=== PATIENT | female | born 1975 | race Caucasian/White ===

== ENCOUNTER 2016-11-08 13:59 | Inpatient (IN) | payer MEDICAID ==
[~2016-11-08] VITALS: Ht 160 cm; Wt 131.5 kg
--- NOTE | 2016-11-08 14:01 | NUR ---
TATI FROM HOME GLF-- RIGHT LEG PAIN. APPLIED PRESSURE TO RIGHT LEG LAC. AWAITING MD ORDER.
--- NOTE | 2016-11-08 14:30 | NUR ---
DR ROGERS AT BEDSIDE FOR EVAL
[2016-11-08] MEDS ORDERED: HYDROCODONE/APAP 10/325MG 1 EA TABLET ONE (14:38)
--- NOTE | 2016-11-08 14:45 | NUR ---
WILNER #20 IV ACCESS. BLOOD SAMPLE COLLECTED SENT TO LAB
--- NOTE | 2016-11-08 14:53 | NUR ---
CALLED NURSING SUP. FOR MS BED
[2016-11-08 14:57] LABS: BASOPHILS # (AUTO) 0.1 /CMM (0.0-0.2); BASOPHILS % (AUTO) 1.4 % (0.0-2.0); EOSINOPHILS # (AUTO) 0.1 /CMM (0.0-0.7); EOSINOPHILS % (AUTO) 1.3 % (0.0-6.0); HEMATOCRIT 41 % (33-45); HEMOGLOBIN 13.7 g/dL (11.5-14.8); LYMPHOCYTES # (AUTO) 1.6 /CMM (0.8-4.8); LYMPHOCYTES % (AUTO) 16.4 % (20.0-44.0); MEAN CORPUSCULAR HEMOGLOBIN 30 PG (26.0-33.0); MEAN CORPUSCULAR HGB CONC 33 g/dl (31.0-36.0); MEAN CORPUSCULAR VOLUME 91 fL (82-100); MONOCYTES # (AUTO) 0.6 /CMM (0.1-1.30); MONOCYTES % (AUTO) 6.1 % (2.0-12.0); NEUTROPHILS # (AUTO) 7.4 /CMM (1.8-8.9); NEUTROPHILS % (AUTO) 74.8 % (43.0-81.0); PLATELET COUNT (AUTO) 365 /CMM (150-450); RDW COEFFICIENT OF VARIATION 12.1 (11.5-15.0); RED BLOOD CELL COUNT(AUTO) 4.55 MIL/uL (4.0-5.2); WHITE BLOOD COUNT (AUTO) 9.8 K/uL (4.3-11.0)
[2016-11-08] MEDS ORDERED: HYDROCODONE/APAP 10/325MG 1 EA TABLET PO ONE (15:00)
[2016-11-08 15:11] LABS: INR 0.89 (0.87-1.13); PROTHROMBIN TIME 9.2 SECS (9.5-12.7)
[2016-11-08 15:18] LABS: CALCIUM, SERUM 8.7 mg/dL (8.5-10.1); CREATININE 0.7 mg/dL (0.6-1.3)
[2016-11-08] MEDS ORDERED: HYDROMORPHONE 1 MG/1 ML DISP.SYRIN ONE (15:21)
[2016-11-08 15:23] LABS: ALBUMIN 3.4 g/dL (3.4-5.0); BILIRUBIN,DIRECT 0.1 mg/dL (0.0-0.2); BILIRUBIN,TOTAL 0.3 mg/dL (0.2-1.0); TOTAL PROTEIN, SERUM 7.9 g/dL (6.4-8.2)
--- NOTE | 2016-11-08 15:24 | NUR ---
PT GETTING MORE MEDS. & GETTING CLEANED UP, ER WILL CALL WHEN READY.
[2016-11-08] MEDS ORDERED: HYDROMORPHONE 1 MG/1 ML DISP.SYRIN IV ONE (15:30)
--- NOTE | 2016-11-08 15:35 | NUR ---
PT TAKEN TO XRAY [facility]IA [facility]
--- NOTE | 2016-11-08 15:45 | NUR ---
MS 201
--- NOTE | 2016-11-08 15:53 | NUR ---
gave report to hilda SAENZ admitting md dr phil jimenes. room 201 . admitting dx rt tib-fib fx.
--- NOTE | 2016-11-08 15:59 | NUR ---
ARJUN CURRY, MARINE NOEL FLOOR POLISHER
[2016-11-08] MEDS ORDERED: CEFAZOLIN 2 GM in IV D5W 50 ML IV ONE (16:30)
[2016-11-08] MEDS ORDERED: LEVOFLOXACIN 750 MG /D5W 150ML 0 ML IV ONE (16:30)
[2016-11-08] MEDS ORDERED: LEVOFLOXACIN 750 MG /D5W 150ML PIGGYBACK IV ONE (16:30)
--- NOTE | 2016-11-08 16:32 | NUR ---
SUGAR PAGED, GONZALO WASHINGTON ONLINE ADVERTISING ANALYST
[2016-11-08] MEDS ORDERED: MORPHINE SULFATE INJ 4 MG/ML DISP.SYRIN IV STA (16:48)
[2016-11-08] MEDS ORDERED: DOXYCYCLINE 100 MG in IV D5W 100 ML IV STA (16:55)
[2016-11-08] MEDS ORDERED: MORPHINE SULFATE INJ 10 MG/ML DISP.SYRIN ONE (17:00)
--- NOTE | 2016-11-08 17:00 | NUR ---
PT ALLERGIC LEVAQUIN MEDS DC'D CHANGE TO DOXYCYCLINE
--- NOTE | 2016-11-08 18:10 | NUR ---
CAMPAIGN ASSOCIATE NOTES RECEIVED PATIENT FROM E.D. DEPARTMENT [facility]IA [facility] TRANSFERRED HERSELF FROM [facility] TO THE BED, ALERT AND ORIENTED, IN STABLE CONDITION, DENIES PAIN AT THIS TIME, ALL NEEDS ATTENDED, FAMILY AT BEDSIDE, SAFETY MEASURES IN PLACED, CALL LIGHT WITHIN REACH, WILL CONTINUE TO MONITOR.
[2016-11-08 18:15] VITALS: BP 124/76
--- NOTE | 2016-11-08 18:30 | NUR ---
RN MS NOTES RECEIVED ORDERS FROM MARINE JIANG, REGULAR DIET NOW AND NPO AFTER 9PM, AND PATIENT WILL HAVE ORIF OF RIGHT TIB/FIB TOMORROW AT 0530AM. ORDER NOTED AND CARRIED OUT. PATIENT PROVIDED DINNER AND TOLERATED WELL, VITAL SIGNS STABLE.
[2016-11-08] MEDS ORDERED: LORAZEPAM INJ 2 MG/ML VIAL IV PRN (19:00)
[2016-11-08] MEDS ORDERED: ACETAMINOPHEN 325 MG TABLET PO PRN (19:00)
[2016-11-08] MEDS ORDERED: Z GUARD REMEDY 2 OZ OINT TP PRN (19:00)
--- NOTE | 2016-11-08 19:15 | NUR ---
RN MS NOTES RECEIVED ORDERS FROM DR. WASHINGTON, ORDERS NOTED AND CARRIED OUT. PATIENT ALERT AND ORIENTED, ALL NEEDS ATTENDED AND MET, SAFETY MEASURES IN PLACED, CALL LIGHT WITHIN REACH, WILL ENDORSE TO INSTALLATION SUPERINTENDENT FOR ESME.
--- NOTE | 2016-11-08 19:18 | NUR ---
MS RN NOTES RECEIVED PT IN BED. A/O X 4 . VERBALLY RESPONSIVE. AT BEDSIDE. PT WITH NO DISTRESS, ABLE TO EAT DINNER. NO SOB NOTE AT THIS TIME. IV SITE ON LEFT HAND INTACT AND PATENT, NO S/S OF INFILTRATION NOTED. RIGHT LOWER LEG COVERED WITH DRESSING AT THIS TIME. NO S/S OF BLEEDING NOTED. NO C/O PAIN OR DISCOMFORT AT THIS TIME. ALL NEEDS ATTENDED AND MET. KEPT COMFORTABLE. SAFETY PRECAUTIONS OBSERVED. CALL LIGHT WITHIN REACH. WILL CONT TO MONITOR.
[2016-11-08] MEDS: MORPHINE SULFATE INJ 2 MG/ML DISP.SYRIN IV PRN (19:38)
[2016-11-08] MEDS: IV NS 0.9% 1,000 ML IV PRN (19:48)
[2016-11-08 20:00] VITALS: BP 123/79
[2016-11-08] MEDS: CEFAZOLIN 1 GM in IV D5W 50 ML IV SCH (21:00)
--- NOTE | 2016-11-08 22:07 | NUR ---
PT REFUSING SURGERY AT THIS TIME, RISKS AND BENEFITS EXPLAINED, PT VERBALIZED THAT SHE WILL THINK ABOUT IT. ALLOWS PT TOO VERBALIZE FEARS AND ANXIETY REGARDING THE SURGERY . PT STILL UNDECIDED AND WILL THINK ABOUT IT. PT STARTED EATING SNACKS THAT THE BOUGHT FROM THE VENDING MACHINE, AND STARTED DRINKING GATORADE. REMINDED PT THAT SHE'S ALREADY ON NPO, PT IS A/O X4, PT VERBALIZED THAT SHE KNOWS THAT SHE SHOULD BE ON NPO AFTER 9PM BUT ACCDG TO HER SHE DOESN'T WANT TO SURGERY TO BE DONE ANYWAY.
--- NOTE | 2016-11-08 22:30 | NUR ---
PT PULLED OUT HER IV LINE, NO BLEEDING NOTED AT THIS TIME. PT VERBALIZED THAT I DON'T WANT ANY MEDICATIONS OR IV FLUIDS AT THIS TIME. EXPLAINED TO THE PT THE RISK AND BENEFITS OF THE IV LINE, ABLE TO CONVINCE PT TO INSERT IV ON HER AGAIN, INSERTED IV ON RIGHT HAND X 1 ATTEMPT WITH GOOD VENOUS RETURN, DANY HERNANDEZ AT BEDSIDE.
--- NOTE | 2016-11-08 23:30 | NUR ---
PT KEPT ON EATING AND DRINKING AT THIS TIME, DESPITE MULTIPLE REMINDERS THAT SHE IS ON NPO FOR SURGERY . PT VERBALIZED THAT SHE'S NOT HAVING THE SURGERY. PLACED A CALL TO RN COOLER TENDER REMEIDOS, AND INFORMED HER RE: PT'S DECISION, PLACED A CALL TO [facility]O , RO[employer] AND P[employer]ING [employer]S SWEEPER OPERATOR AND SPOKE WITH FREDI. SHE'LL PAGE MARINE MAGUI AND HE'LL GIVE ME A CALL BACK. AWAITING FOR CALL BACK.
--- NOTE | 2016-11-08 23:52 | NUR ---
RECEIVED A CALL FROM MARINE KILGORE , EXPLAINED TO HIM THAT THE PT IS REFUSING THE SCHEDULED SURGERY TOMORROW, MARINE SPOKE WITH THE PT IN THE PHONE, PER MARINE PT IS STILL UNDECIDED AT THIS TIME, BUT MARINE IS AWARE THAT THE PT SHOULD BE ON NPO AFTER 9PM BUT STILL EATING OF THIS MOMENT. PER MARINE TO GIVE HIM A CALL BACK ONCE THE PT MADE HER DECISION ALREADY. ALSO MARINE MADE AWARE THAT THE PT REFUSED THE IV ATB AND THAT SHE WANTED TO RE CHANGE THE DRESSING OF THE AFFECTED LEG, BUT UNABLE TO CHANGE IT D/T, EPISODES OF BLEEDING IN THE ER THE PT VERBALIZED AND ALSO SPLINT WAS PLACED WITH THE DRESSING.
--- NOTE | 2016-11-09 00:25 | NUR ---
PT DOESN'T WANT THE SURGERY TO BE DONE TOMORROW, RISK AND BENEFITS EXPLAINED. PT STILL REFUSED X 3, WITNESSED BY DANY REYES. PLACED A CALL TO COURY MAGUI AND INFORMED HIM REGARDING PT'S DECISION.
--- NOTE | 2016-11-09 02:00 | NUR ---
PT REFUSED IVF AT THIS TIME, RISK AND BENEFITS EXPLAINED, PT STILL REFUSED.
[2016-11-09] MEDS: CEFAZOLIN 1 GM in IV D5W 50 ML IV SCH (05:00)
--- NOTE | 2016-11-09 06:00 | NUR ---
PT REFUSED BLOOD DRAW , RISK AND BENEFITS EXPLAINED. PT STILL REFUSED.
[2016-11-09] MEDS ORDERED: MORPHINE SULFATE INJ 2 MG/ML DISP.SYRIN ONE (06:59)
[2016-11-09] MEDS: ONDANSETRON HCL/PF 4 MG/2 ML VIAL IVP PRN (07:02)
[2016-11-09] MEDS: MORPHINE SULFATE INJ 2 MG/ML DISP.SYRIN IV PRN (07:08)
--- NOTE | 2016-11-09 07:20 | NUR ---
MS RN NOTES RECEIVED PT IN BED. A/O X 4 . VERBALLY RESPONSIVE. AT BEDSIDE. PT WITH NO DISTRESS. NO SOB NOTE AT THIS TIME. IV SITE ON RIGHT HAND INTACT AND PATENT, NO S/S OF INFILTRATION NOTED. RIGHT LOWER LEG COVERED WITH DRESSING AT THIS TIME. NO S/S OF BLEEDING NOTED. NO C/O PAIN OR DISCOMFORT AT THIS TIME. ALL NEEDS ATTENDED AND MET. KEPT COMFORTABLE. SAFETY PRECAUTIONS OBSERVED. ADVISED PT NOT TO APPLY WEIGHT ON THE AFFECTED FOOT, BUT PT CONSTANTLY PUTTING HER RIGHT FOOT DOWN. PT IS A/O X 4. CALL LIGHT WITHIN REACH. WILL ENDORSE TO NEXT SHIFT FOR ESME.
[2016-11-09] MEDS: PANTOPRAZOLE 40 MG TABLET.DR PO SCH (07:30)
[2016-11-09 08:00] VITALS: BP 160/91
--- NOTE | 2016-11-09 08:11 | NUR ---
RN MS NOTES PATIENT IN BED ALERT AND ORIENTED, DENIES PAIN AT THIS TIME, REFUSES MEDICATIONS AND STILL REFUSING SURGERY TO RIGHT FIB/TIB, RECEIVED AN ORDER FROM MARINE JIANG, PATIENT CAN EAT BREAKFAST BUT NPO AFFTER 8:30AM, PATIENT MADE AWARE. PATIENT'S BLOOD PRESSURE 160/90 HEART RATE 119, PER PATIENT SHE FEELS ANXIOUS DUE TO SURGERY AND HER CONDITION, OFFERED ATIVAN BUT PATIENT REFUSED. EXPLAINED RISKS AND BENEFITS X3, STILL REFUSED. WILL INFORM MD REGARDING VITALS.
[2016-11-09] MEDS ORDERED: METOPROLOL TARTRATE INJ 5 MG/5 ML AMPUL ONE (09:51)
--- NOTE | 2016-11-09 11:00 | NUR ---
RN MS NOTES DR. GONZALO WASHINGTON CAME AND EXAMINED THE PATIENT, DISCUSSED THE RISKS WITH NO SURGICAL INTERVENTION, DISCUSSED TREATMENT AND RECOVERY PERIOD POST OP, PATIENT IS STILL UNSURE ABOUT SURGERY, FAMILY AT BEDSIDE TRYING TO CONVINCE PATIENT TO DO THE SURGERY, BUT PATIENT IS ANXIOUS AND AFRAID OF STAYING IN THE HOSPITAL FOR A FEW DAYS. PATIENT STILL ENCOURAGED TO BE NPO FOR POSSIBLE SURGERY TODAY, IN CASE SHE AGREES TO IT.
--- NOTE | 2016-11-09 11:19 | NUR ---
torpedo worker met with patient at bedside. Patient's friend was also at bedside. Patient was oriented x4. Patient was calm and cooperative. Patient was guarded stating, "torpedo worker, why do I need a social service manager, I don't have any children." Per patient, she lives at home with her mother [id number] [facility] [id number] ([phone]). Patient would like to return home upon discharge. Patient's contact is her father Pretty Muñoz ([phone]). Per patient, she has anxiety and is worried that she is going to get in an infection. Patient and patient's friend were unhappy with the staff. Per patient, she drinks alcohol every other day but denied using drugs. torpedo worker asked patient if she was interested in going to a treatment center. Patient refused a treatment center. torpedo worker left patient substance abuse resources (substance abuse treatment centers, AA meeting resources, mental health resources). Patient denied visual and auditory hallucinations. Patient denied suicidal and homicidal ideations. torpedo worker informed patient that she is available if needed.
--- NOTE | 2016-11-09 12:30 | NUR ---
RN MS NOTES MARINE JIANG CALLED AND ASKED IF THE PATIENT IS WILLING TO GO TO SURGERY, INFORMED MAGUI PATIENT IS STILL UNSURE, SHE DOES NOT WANT TO BE "PUT TO SLEEP" DURING THE SURGERY, MARINE SAID HE WILL COME TALK TO HER LATER, BUT FOR NOW KEEP HER NPO. INFORMED MARINE ABOUT THE ELEVATED BLOOD PRESSURE.
--- NOTE | 2016-11-09 12:40 | NUR ---
RN MS OH KILGORE CALLED AND STATED SURGERY IS SCHEDULED AT 4PM, IF PATIENT AGREES. PATIENT WILL BE PREPARED FOR SURGERY. CURRENTLY PATIENT IS AGREEING TO THE SURGERY WITH THE CONDITION THAT SHE WILL NOT BE PUT TO SLEEP, OR STAFF MADE AWARE.
[2016-11-09] MEDS: VALSARTAN 40 MG TABLET PO SCH (12:53)
[2016-11-09 13:18] LABS: BASOPHILS # (AUTO) 0.1 /CMM (0.0-0.2); BASOPHILS % (AUTO) 0.8 % (0.0-2.0); EOSINOPHILS % (AUTO) 0.2 % (0.0-6.0); HEMATOCRIT 39 % (33-45); HEMOGLOBIN 13.2 g/dL (11.5-14.8); LYMPHOCYTES # (AUTO) 1.3 /CMM (0.8-4.8); MEAN CORPUSCULAR HEMOGLOBIN 31 PG (26.0-33.0); MEAN CORPUSCULAR HGB CONC 34 g/dl (31.0-36.0); MEAN CORPUSCULAR VOLUME 90 fL (82-100); MONOCYTES # (AUTO) 0.7 /CMM (0.1-1.30); MONOCYTES % (AUTO) 6.2 % (2.0-12.0); NEUTROPHILS # (AUTO) 8.9 /CMM (1.8-8.9); NEUTROPHILS % (AUTO) 80.8 % (43.0-81.0); PLATELET COUNT (AUTO) 314 /CMM (150-450); RDW COEFFICIENT OF VARIATION 12.9 (11.5-15.0); RED BLOOD CELL COUNT(AUTO) 4.32 MIL/uL (4.0-5.2)
[2016-11-09 13:26] LABS: ALBUMIN 3.4 g/dL (3.4-5.0); CALCIUM, SERUM 8.7 mg/dL (8.5-10.1); CREATININE 0.8 mg/dL (0.6-1.3); MAGNESIUM 1.9 mg/dL (1.8-2.4); PHOSPHORUS 3.8 mg/dL (2.5-4.9); POTASSIUM 3.8 mmol/L (3.5-5.1); TOTAL PROTEIN, SERUM 7.8 g/dL (6.4-8.2)
[2016-11-09 13:34] LABS: THYROID STIMULATING HORMONE 3.317 uIU/mL (0.358-3.74)
[2016-11-09] MEDS: DOXYCYCLINE 100 MG in IV D5W 100 ML IV SCH (14:38)
[2016-11-09 16:00] VITALS: BP 146/86
[2016-11-09] MEDS ORDERED: LORAZEPAM 1 MG TABLET PO PRN (16:00)
[2016-11-09] MEDS ORDERED: BACITRACIN 50000 UNITS/VIAL ONE (16:09)
[2016-11-09] MEDS ORDERED: MORPHINE SULFATE INJ 10 MG/ML DISP.SYRIN ONE (18:21)
[2016-11-09] MEDS ORDERED: CLINDAMYCIN 900 MG/6 ML VIAL ONE (18:59)
[2016-11-09] MEDS ORDERED: ROCURONIUM BROMIDE 50 MG/5 ML ONE (19:34)
[2016-11-09] MEDS ORDERED: HYDROGEN PEROXIDE 480 ML BOTTLE ONE (19:59)
[2016-11-09] MEDS ORDERED: BUPIVACAINE 0.5 % PF 150 MG/30 ML VIAL ONE (20:45)
[2016-11-09 21:00] VITALS: BP 120/70
[2016-11-09] MEDS ORDERED: MORPHINE SULFATE INJ 4 MG/ML DISP.SYRIN IV PRN (22:00)
[2016-11-09] MEDS ORDERED: oxyCODONE/APAP (5/325 MG) 1 UDTAB TABLET PO PRN ×2 (22:30)
[2016-11-09 22:55] VITALS: BP 120/70
--- NOTE | 2016-11-09 23:40 | NUR ---
RN NOTES RECEIVED REPORT FROM JHONNY SAENZ FOR CONTINUITY OF CARE
[2016-11-10] MEDS: DOXYCYCLINE 100 MG in IV D5W 100 ML IV SCH ×2 (00:39→12:36)
[2016-11-10] MEDS: CLINDAMYCIN 900 MG in IV D5W 50 ML IV SCH ×3 (03:00→19:00)
[2016-11-10] MEDS: IV NS 0.9% 1,000 ML IV PRN (05:54)
--- NOTE | 2016-11-10 06:17 | NUR ---
RN NOTES PATIENT AWAKE, AO X 4, ABLE TO MAKE NEEDS KNOWN. NO ACUTE DISTRESS NOTED. DENIES ANY PAIN AT THIS TIME. RIGHT LEG SURGICAL INCISION DRESSING INTACT. IV SITE PATENT, INTACT; IVF INFUSING ORDERED. DUE MEDS GIVEN WITH NO ASE NOTED. NEEDS ATTENDED. SAFETY PRECAUTIONS AND COMFORT MEASURES IN PLACE. WILL GIVE REPORT TO DAY SHIFT FOR CONTINUITY OF CARE.
--- NOTE | 2016-11-10 07:12 | NUR ---
MS RN OPENING NOTES RECEIVED PT IN BED AWAKE IN NO ACUTE SIGNS OF DISTRESS. AT BEDSIDE. A/O X 4, NO C/O PAIN OR DISCOMFORTS AT THIS TIME. DRESSING ON RIGHT LOWER LEG INTACT, CLEAN AND DRY. IV SITE ON LEFT HAND INTACT AND PATENT, IVF OF NS AT 75ML/HR INFUSING WELL, NO S/S OF INFILTRATION NOTED. CALL LIGHT WITHIN REACH. SAFETY PRECAUTIONS MAINTAINED. WILL CONTINUE TO MONITOR PT ACCORDINGLY..
[2016-11-10] MEDS: PANTOPRAZOLE 40 MG TABLET.DR PO SCH (07:30)
[2016-11-10 07:37] LABS: BASOPHILS % (AUTO) 0.1 % (0.0-2.0); HEMATOCRIT 37 % (33-45); HEMOGLOBIN 12.4 g/dL (11.5-14.8); LYMPHOCYTES # (AUTO) 0.5 /CMM (0.8-4.8); LYMPHOCYTES % (AUTO) 3.5 % (20.0-44.0); MEAN CORPUSCULAR HEMOGLOBIN 31 PG (26.0-33.0); MEAN CORPUSCULAR HGB CONC 34 g/dl (31.0-36.0); MEAN CORPUSCULAR VOLUME 91 fL (82-100); MONOCYTES # (AUTO) 0.4 /CMM (0.1-1.30); MONOCYTES % (AUTO) 3.3 % (2.0-12.0); NEUTROPHILS # (AUTO) 12.4 /CMM (1.8-8.9); NEUTROPHILS % (AUTO) 93.1 % (43.0-81.0); PLATELET COUNT (AUTO) 298 /CMM (150-450); RDW COEFFICIENT OF VARIATION 13.1 (11.5-15.0); RED BLOOD CELL COUNT(AUTO) 4.07 MIL/uL (4.0-5.2); WHITE BLOOD COUNT (AUTO) 13.3 K/uL (4.3-11.0)
[2016-11-10 08:00] VITALS: BP 133/73
[2016-11-10 08:11] LABS: CALCIUM, SERUM 8.8 mg/dL (8.5-10.1); CREATININE 0.8 mg/dL (0.6-1.3); MAGNESIUM 1.9 mg/dL (1.8-2.4); PHOSPHORUS 2.4 mg/dL (2.5-4.9)
[2016-11-10] MEDS: VALSARTAN 40 MG TABLET PO SCH (08:38)
--- NOTE | 2016-11-10 08:39 | NUR ---
RN NOTES PATIENT REFUSED ALL P.O. MEDS THIS MORNING. STATED THAT SHE'S FINE NOT TAKING THEM SHE'S STABLE NOW AND HER BP IS NORMAL 133/73MMHG. EXPLAINED THE BENEFITS OF TAKING ALL THE MEDS BUT STILL REFUSED. WILL CONTINUE TO MONITOR.
[2016-11-10] MEDS ORDERED: SERTRALINE HCL 25 MG TABLET PO SCH (09:00)
[2016-11-10] MEDS ORDERED: HYDROCODONE/APAP 5/325MG 1 EACH TABLET PO PRN (11:30)
[2016-11-10] MEDS ORDERED: HYDROCODONE/APAP 5/325MG 1 EACH TABLET PO ONE (11:30)
[2016-11-10] MEDS ORDERED: RIVA10TA PO (12:09)
[2016-11-10] MEDS ORDERED: DOXY100C2 PO (12:09)
[2016-11-10] MEDS ORDERED: OXYC-128 PO (12:09)
--- NOTE | 2016-11-10 13:19 | NUR ---
RN NOTES PATIENT SEEN AND EVALUATED BY DR. WASHINGTON WITH ORDER FOR DISCHARGE HOME TODAY. S/P POST OPEN ORIF OF RIGHT TIBULA AND FIBULA BY DR SCHWARTZ ON 11/09/2016. PT REFUSED PHOTOS OF WOUND TO BE TAKEN. WILL CONTINUE TO MONITOR.
[2016-11-10 16:00] VITALS: BP 122/83
[2016-11-10] MEDS ORDERED: K PHOS NEUTRAL 250 MG TABLET PO ONE (16:00)
[2016-11-10] MEDS ORDERED: RIVAROXABAN 10 MG TABLET PO SCH (17:00)
[2016-11-10] MEDS: ONDANSETRON HCL/PF 4 MG/2 ML VIAL IVP PRN (18:52)
--- NOTE | 2016-11-10 19:09 | NUR ---
RN CLOSING NOTES PATIENT AWAKE AND RESTING IN BED. ALERT AND ORIENTED X 4. ALL NEEDS AND CARE ATTENDED WELL ALL DUE MEDS GIVEN ORDERED. WILL ENDORSED TO PLANT PHYSIOLOGY TEACHER THAT PT WILL BE DISCHARGED HOME TONIGHT AT 20OOH. TRANSPORTATION ARRANGED BY METHODS ANALYST.
[2016-11-10 20:05] VITALS: BP 143/87
--- NOTE | 2016-11-10 20:07 | NUR ---
PT COMPLAIN OF PAIN ON HER LOWER LEG IN A SCALE OF 9/10. PERCOCET 5/325MG PO GIVEN ORDERED. WILL CONTINUE TO REASSESS AND MONITOR.
[2016-11-10 20:55] VITALS: BP 143/87
--- NOTE | 2016-11-10 21:26 | NUR ---
MS RN OPENING NOTES RECEIVED PT IN BED AWAKE. A/O X 4. NO SOB. RESPIRATION EVEN AND UNLABORED. DRESSING ON RIGHT LOWER LEG INTACT, CLEAN AND DRY. PROVIDE COMFORT MEASURES. ALL NEEDS ATTENDED AND ANTICIPATED. CALL LIGHT WITHIN REACH. SAFETY PRECAUTIONS MAINTAINED. WILL CONTINUE TO MONITOR FOR SAFETY.
--- NOTE | 2016-11-10 22:14 | NUR ---
PT WAS DISCHARGE WITH EMT VIA [facility] GOING TO HER HOME. BELONGINGS CHECKED AND GIVE IT TO THE PT. NO SOB. RESPIRATION EVEN AND UNLABORED. NO COMPLAIN OF PAIN AT THIS TIME. V/S STABLE. NO ACUTE DISTRESS NOTED. PT REFUSED PHOTOS OF WOUND TO BE TAKEN. STABLE UPON DISCHARGE.
== END 2016-11-10 22:05 | disposition home or self-care (01) | DRG 313 ==
LOC: ER 14:03 → MEDSG2 16:32 → MED 11-09 16:13
PROVIDERS: ADMIT Nurse Practitioner Acute Care; ATTEND Nurse Practitioner Acute Care
PROC: 0QSJ04Z Reposition Right Fibula with Internal Fixation Device, Open Approach (ICD-10-PCS; principal; 2016-11-09 06:54)
PROC: 0QSG04Z Reposition Right Tibia with Internal Fixation Device, Open Approach (ICD-10-PCS; principal; 2016-11-09 06:54)
DX: S82.251A Displaced comminuted fracture of shaft of right tibia, initial encounter for closed fracture (principal); E43 Unspecified severe protein-calorie malnutrition; S82.491A Other fracture of shaft of right fibula, initial encounter for closed fracture; Z68.43 Body mass index [BMI] 50.0-59.9, adult; E66.01 Morbid (severe) obesity due to excess calories; F10.20 Alcohol dependence, uncomplicated; Y90.8 Blood alcohol level of 240 mg/100 ml or more; F41.1 Generalized anxiety disorder; F41.0 Panic disorder [episodic paroxysmal anxiety]; Y93.9 Activity, unspecified; Y92.009 Unspecified place in unspecified non-institutional (private) residence as the place of occurrence of the external cause; W18.30XA Fall on same level, unspecified, initial encounter; F17.210 Nicotine dependence, cigarettes, uncomplicated
CPT/HCPCS: 36415; 71010-TC; 73560-TC; 73590-TC; 73600-TC; 80048-TC; 80053-TC; 80061-TC; 80076-TC; 83735-TC; 84100-TC; 84443-TC; 85025-TC; 85730-TC; 86850-TC; 87081-TC; 97001-TC; A4606; A6402; G0480; J0690; J1170; J1956; J2270; J2405; J3490; J7030; J7060; Z7610

== ENCOUNTER 2016-11-20 19:33 | Emergency (ER) | payer MEDICAID ==
[~2016-11-20] VITALS: Ht 172.7 cm; Wt 179.6 kg
[~2016-11-20 19:33] MED LIST: DOXY100C2 PO; OXYC-128 PO; RIVA10TA PO
--- NOTE | 2016-11-20 19:45 | NUR ---
TO BED 6 A 41 YO FEMALE BB RA 889 HERE FOR "RT LEG INCREASING PAIN AND SUTURE REMOVAL." S/P TIBIA/FIBULA ORIF 10 DAYS AGO. UPON ARRIVAL TO ER, PATIENT IS AAOX4, AFEBRILE, VSS. NAD NOTED. COMFORT MEASURES RENDERED. NOTED WITH DRESSINGS ON THE R LOWER EXTREMITY, NO ADVERSE CONDITION NOTED. AWAITING FOR ER MD RUVALCABA.
--- NOTE | 2016-11-20 20:00 | NUR ---
Tiago Davenport at bedside.
[2016-11-20] MEDS ORDERED: MORPHINE SULFATE INJ 4 MG/ML DISP.SYRIN ONE (20:37)
--- NOTE | 2016-11-20 20:40 | NUR ---
morphine 4mg given to the left deltoid IM per Matias Davenport's verbal order. Matias Davenport at bedside for suture/staple removal.
--- NOTE | 2016-11-20 20:41 | NUR ---
CALLED [facility] FOR TRANSPORT, ETA OF 2200.
[2016-11-20] MEDS ORDERED: MORPHINE SULFATE INJ 2 MG/ML DISP.SYRIN IM ONE ×2 (21:00→22:00)
[2016-11-20] MEDS ORDERED: HYDROCODONE/APAP 5/325MG 1 EACH TABLET PO ONE (21:00)
[2016-11-20] MEDS ORDERED: ONDANSETRON 4 MG TAB.RAPDIS SL ONE (21:00)
[2016-11-20] MEDS ORDERED: ONDANSETRON 4 MG TAB.RAPDIS ONE (21:11)
[2016-11-20] MEDS ORDERED: MORPHINE SULFATE INJ 2 MG/ML DISP.SYRIN ONE (21:47)
[2016-11-20] MEDS ORDERED: oxyCODONE/APAP (5/325 MG) 1 UDTAB TABLET ONE (23:39)
[2016-11-21] MEDS ORDERED: oxyCODONE/APAP (5/325 MG) 1 UDTAB TABLET PO ONE
--- NOTE | 2016-11-21 00:07 | NUR ---
Patient discharged to home in stable condition via ambulance. Written and verbal after care instructions given. Patient verbalizes understanding of instruction. Report given to [facility] staff. No further complaints. Wound dressings intact, no s/s of adverse condition.
[2016-11-21 00:08] VITALS: BP 118/69
== END 2016-11-21 00:09 | disposition home or self-care (01) ==
LOC: ER 19:34
DX: S81.811D Laceration without foreign body, right lower leg, subsequent encounter (principal); E66.01 Morbid (severe) obesity due to excess calories; F41.9 Anxiety disorder, unspecified; Z79.01 Long term (current) use of anticoagulants; Z88.1 Allergy status to other antibiotic agents
CPT/HCPCS: A4606; A6402; J2270; Q0162; Z7610

== ENCOUNTER 2018-06-11 22:27 | Emergency (ER) | payer SELFPAY ==
[~2018-06-11] VITALS: Ht 160 cm; Wt 127.0 kg
--- NOTE | 2018-06-11 23:10 | NUR ---
[employer] ARRIVED AND TRIED TO SPEAK TO THE PT. PT IS REFUSING TO SPEAK TO THE [employer].
--- NOTE | 2018-06-11 23:28 | NUR ---
PT IS AMBULATING IN AROUND THE BED LOOKING FOR HER PHONE AND BELONGINGS. PT WAS TOLD THAT WHAT SHE HAD WITH HER WAS ALL THAT WE HAVE. PT HAS A PINK BATHROBE AND A LEOPARD PRINT TOP SITTING ON THE BED AND PT IS WEARING A BLACK T SHIRT AND BLACK PANTS WITH FLIP FLOPS. PT IS REFUSING TO GIVE A URINE SAMPLE. PT STATED THAT SHE WANTS HER BELONGINGS BEFORE SHE DOES ANYTHING.
--- NOTE | 2018-06-11 23:57 | NUR ---
PT AMBULATED TO THE NURSES STATION WITH A STEADY GAIT. PT WANTS TO LEAVE. CALLED PT'S FAMILY MEMBER NO ANSWER.
--- NOTE | 2018-06-12 00:25 | NUR ---
PT IS REFUSING XRAY.
--- NOTE | 2018-06-12 00:43 | NUR ---
CALLED PT'S SISTER AGAIN. NO ANSWER.
[2018-06-12] MEDS ORDERED: IBUPROFEN 600 MG TABLET PO ONE (01:00)
--- NOTE | 2018-06-12 02:09 | NUR ---
PT APPEARS TO BE SLEEPING SOUNDLY. PT TO RECEIVE MOTRIN WHEN SHE WAKES UP.
--- NOTE | 2018-06-12 02:45 | NUR ---
PT APPEARS TO BE SLEEPING COMFORTABLY WITH NO S/S OF PAIN OR DISTRESS.
[2018-06-12 08:58] VITALS: BP 135/81
--- NOTE | 2018-06-12 08:59 | NUR ---
Patient discharged to home in stable condition. Written and verbal after care instructions given. Patient verbalizes understanding of instruction.
== END 2018-06-12 08:58 | disposition home or self-care (01) ==
LOC: ER 22:28
DX: F10.129 Alcohol abuse with intoxication, unspecified (principal); M79.661 Pain in right lower leg; I10 Essential (primary) hypertension; Z88.1 Allergy status to other antibiotic agents; Z79.01 Long term (current) use of anticoagulants; Z79.899 Other long term (current) drug therapy
CPT/HCPCS: 73590-TC